=== PATIENT | female | born 2000 | race Caucasian/White ===

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

== ENCOUNTER → 2020-04-03 | Outpatient (CLI) | payer OTHER | LOC: ZCOL.LAB 19:52 | DX: R09.81 Nasal congestion (principal); R11.0 Nausea; R06.02 Shortness of breath; Z20.828 Contact with and (suspected) exposure to other viral communicable diseases ==

== ENCOUNTER 2022-02-27 21:47 | Inpatient (IN) | payer SELFPAY ==
[~2022-02-27] VITALS: Ht 160 cm; Wt 75.0 kg
--- NOTE | 2022-02-27 22:00 | NUR ---
PT TO UNIT AMBULATORY WITH SPOUSE WITH COMPLAINTS OF CONTRACTIONS THAT ARE EVERY 5 MINUTES. PT ORIENTED TO ROOM, EFM X2 APPLIED, VS OBTAINED, SVE PERFORMED.
[2022-02-27 22:30] VITALS: BP 134/70; PULSE 93; TEMP 97.7
[2022-02-27] MEDS ORDERED: EVENING PRIMRO500 MG PO (23:16)
[2022-02-27] MEDS ORDERED: PRENATAL TABLET PO (23:16)
[2022-02-27] MEDS ORDERED: ASPIRIN 81M81 MG/TA2 PO (23:17)
[2022-02-27] MEDS ORDERED: EVENING PRIMRO500 MG VG (23:17)
[2022-02-28] VITALS (51 sets, daily range): BP systolic 90–156; BP diastolic 47–92; PULSE 64–112; TEMP 97.5–98.7
[2022-02-28 01:31] LABS: BASO # 0.1 K/mm3 (0.0-0.2); BASO % 0.4 % (0.0-2.0); EOS # 0.1 K/mm3 (0.0-0.7); EOS % 0.6 % (0.0-4.0); GRAN # 9.9 K/mm3 (1.4-6.5); GRAN % 75.1 % (42.2-75.2); HEMOGLOBIN 12.3 g/dl (12.5-16.0); LYMPH # 2.3 K/mm3 (1.2-3.4); LYMPH % 17.1 % (20.0-51.0); MEAN CELL VOLUME 90 fl (80.0-100.0); MEAN CORPUSCULAR HEMOGLOBIN 31 pg (27-31); MEAN CORPUSCULAR HGB CONC 34 g/dl (33.0-37.0); MONO # 0.8 K/mm3 (0.1-0.6); PLATELET COUNT 179 K/mm3 (130-400); RED BLOOD COUNT 4.02 M/mm3 (4.10-5.30); REDCELL DISTRIBUTION WIDTH-CV 12.5 % (11.5-14.5)
--- NOTE | 2022-02-28 04:30 | NUR ---
DIFFICULTY TRACING CONTRACTIONS DUE TO MATERNAL POSITION, WILL ADJUST TOCO.
--- NOTE | 2022-02-28 08:40 | NUR ---
[id number] Dr Key in patients room. reviewing FHR strip. discussing plan of care. pt verbalizes understanding. 0829 Dr. Key SVE 4-//-2. Discusses with this RN SVE 10-10:30 to check for cervical change. Pitocin and AROM discussed with pt if unchanged at that time.
--- NOTE | 2022-02-28 15:05 | NUR ---
SVE by this RN 0. Dr. Key in room checking on patient. Reviewing FHR strip
--- NOTE | 2022-02-28 16:55 | NUR ---
[id number] THIS RN HELPING PATIENT INTO SIDE LYING HIP RELEASE.
--- NOTE | 2022-02-28 19:34 | NUR ---
1934 COMPLETE AND INSTRUCTED TO PUSH WITH CONTRACTIONS. 1949 DR CAIN CALLED TO COME TO DESTINY. READIED FOR DESTINY 1999 DR CAIN HERE 2010 DELIVERY VIABLE FEMALE OVER 2 DEGREE LAC WITH 8/9/9 APGARS. IV FLUIDS CONT TO INFUSE.
--- NOTE | 2022-02-28 22:35 | NUR ---
2235 IV TO INT. EPID CATH REMOVED. UP TO BR WITH ASSIST. UNABLE TO VOID. PERICARE DONE. SL DIZZY. TO 212 PER W/C AND AKJAL WELL
[2022-03-01 05:00] VITALS: BP 95/51; PULSE 77; TEMP 97.9
[2022-03-01 05:50] LABS: HEMOGLOBIN 11.9 g/dl (12.5-16.0)
[2022-03-01 05:53] LABS: HEMATOCRIT 34.4 % (37.0-47.0)
[2022-03-01 07:29] VITALS: BP 101/57; PULSE 78; TEMP 98.1
[2022-03-01] MEDS ORDERED: IBU600 MG PO (08:55)
[2022-03-01 16:00] VITALS: BP 108/60; PULSE 89; TEMP 98.3
[2022-03-01 20:47] VITALS: BP 125/70; PULSE 100; TEMP 98.2
[2022-03-02 07:00] VITALS: BP 96/53; PULSE 78; TEMP 97.8
--- NOTE | 2022-03-02 10:26 | NUR ---
Initial visit attempt; Hearing Testing in progress. Director Payment left card of congratulations for the of their daughter and information regarding the availability of Spiritual Care at [facility].
--- NOTE | 2022-03-02 15:00 | NUR ---
Rests in bed, alert. Discharge instructions given, verbalizes understanding.
== END 2022-03-02 15:15 | disposition home or self-care (01) | DRG 807 ==
LOC: LDRO 21:47 → OB 02-28 00:51 → LDR 02-28 00:51 → OB 02-28 22:35
PROVIDERS: Obstetrics & Gynecology; Student in an Organized Health Care Education/Training Program; ADMIT Obstetrics & Gynecology
PROC: 10E0XZZ Delivery of Products of Conception, External Approach (ICD-10-PCS; principal; 2022-02-28)
PROC: 0KQM0ZZ Repair Perineum Muscle, Open Approach (ICD-10-PCS; 2022-02-28)
DX: O77.0 Labor and delivery complicated by meconium in amniotic fluid (principal); Z37.0 Single live birth; O76 Abnormality in fetal heart rate and rhythm complicating labor and delivery; O70.1 Second degree perineal laceration during delivery; Z3A.40 40 weeks gestation of pregnancy
CPT/HCPCS: J2590; J7120